=== PATIENT | male | born 1965 | race Caucasian/White ===

== ENCOUNTER 2020-06-09 17:30 | Emergency (ER) | payer MEDICAID ==
[~2020-06-09] VITALS: Ht 170.2 cm; Wt 83.9 kg
--- NOTE | 2020-06-09 17:58 | NUR ---
LOWER BACK PAIN, DENIES ANY INJURY. PATIENT A/OX4, BREATHING EVEN AND UNLABORED, NO SOB NOTED, NEEDS ATTENDED, KEPT COMFORTABLE.
[2020-06-09] MEDS ORDERED: KETOROLAC TROMETHAMINE INJ 60 MG/2 ML VIAL IM ONE (18:42)
[2020-06-09] MEDS ORDERED: DEXAMETHASONE SOD PHOSPHATE 4 MG/ML VIAL ONE (18:42)
[2020-06-09] MEDS ORDERED: CARISOPRODOL 350 MG TABLET ONE (18:42)
[2020-06-09] MEDS: KETOROLAC TROMETHAMINE INJ 60 MG/2 ML VIAL IM ONE (18:55)
[2020-06-09] MEDS: CARISOPRODOL 350 MG TABLET PO ONE (18:55)
[2020-06-09] MEDS: DEXAMETHASONE SOD PHOSPHATE 4 MG/ML VIAL IM ONE (18:56)
--- NOTE | 2020-06-09 19:15 | NUR ---
ENDORSED TO KEYONNA FERNÁNDEZ.
[2020-06-09 19:54] VITALS: BP 124/79
--- NOTE | 2020-06-09 19:54 | NUR ---
Patient discharged to home in stable condition. Written and verbal after care instructions given. Patient verbalizes understanding of instruction and RX. PT ambulated with staedy gait, vss.
== END 2020-06-09 19:54 | disposition home or self-care (01) ==
LOC: ER 17:35
DX: M54.41 Lumbago with sciatica, right side (principal); M54.42 Lumbago with sciatica, left side; Z88.0 Allergy status to penicillin; Z88.1 Allergy status to other antibiotic agents; Z85.3 Personal history of malignant neoplasm of breast
CPT/HCPCS: 96372 ×2; 99284; J1100; J1885

== ENCOUNTER 2020-06-17 02:23 | Emergency (ER) | payer MEDICAID ==
[~2020-06-17] VITALS: Ht 170.2 cm; Wt 84.8 kg
--- NOTE | 2020-06-17 02:35 | NUR ---
PT BIBA FROM [facility] C/O NON RADIATING CHEST PAIN/ ABD PAIN. PT STATES "MAYBE ITS A MUSCLE TEAR.". PT AAOX4, VSS, RESPIRATIONS EVEN AND UNLABORED ON RA W/ NAD NOTED. PT CONNECTED TO THE SIGN DESIGNER AND POX.
--- NOTE | 2020-06-17 02:40 | NUR ---
BLOOD COLLECTED AND SENT TO LAB
[2020-06-17] MEDS ORDERED: HYDROMORPHONE 1 MG/1 ML DISP.SYRIN ONE (02:56)
[2020-06-17] MEDS ORDERED: ONDANSETRON HCL/PF 4 MG/2 ML VIAL ONE (02:56)
[2020-06-17] MEDS ORDERED: IV NS 0.9% 1,000 ML BAG IV ONE (03:00)
[2020-06-17] MEDS ORDERED: HYDROMORPHONE 1 MG/1 ML DISP.SYRIN IV ONE (03:00)
[2020-06-17] MEDS ORDERED: ONDANSETRON HCL/PF - ER 4 MG/2 ML VIAL IV ONE (03:00)
[2020-06-17] MEDS ORDERED: IOHEXOL-350 100 ML VIAL IV ONE (03:11)
[2020-06-17] MEDS ORDERED: IV NS 0.9% 250 ML IV ONE (03:11)
[2020-06-17 03:15] LABS: BASOPHILS # (AUTO) 0.1 /CMM (0.0-0.2); BASOPHILS % (AUTO) 0.6 % (0.0-2.0); EOSINOPHILS % (AUTO) 2.9 % (0.0-6.0); HEMATOCRIT 46 % (39-51); HEMOGLOBIN 15.4 g/dL (13.5-17.5); LYMPHOCYTES # (AUTO) 2.7 /CMM (0.8-4.8); LYMPHOCYTES % (AUTO) 26.4 % (20.0-44.0); MEAN CORPUSCULAR HGB CONC 33 g/dl (31.0-36.0); MEAN CORPUSCULAR VOLUME 94 fL (80-96); MONOCYTES % (AUTO) 9.6 % (2.0-12.0); NEUTROPHILS # (AUTO) 6.1 /CMM (1.8-8.9); NEUTROPHILS % (AUTO) 60.5 % (43.0-81.0); PLATELET COUNT (AUTO) 233 /CMM (150-450); RED BLOOD CELL COUNT(AUTO) 4.93 MIL/uL (4.5-6.0); WHITE BLOOD COUNT (AUTO) 10.1 K/uL (4.3-11.0)
[2020-06-17 03:21] LABS: CALCIUM, SERUM 9.3 mg/dL (8.5-10.1); CARBON DIOXIDE 28 mmol/L (21-32); CHLORIDE 105 mmol/L (98-107); CREATININE 1.7 mg/dL (0.6-1.3); GLUCOSE 121 mg/dL (74-106); POTASSIUM 4.5 mmol/L (3.5-5.1); SODIUM SERUM 142 mmol/L (136-145); UREA NITROGEN, BLOOD 26 mg/dL (7-18)
[2020-06-17 03:33] LABS: ALANINE AMINOTRANSFERASE 75 U/L (12-78); ALBUMIN 3.5 g/dL (3.4-5.0); ALKALINE PHOSPHATASE 180 U/L (46-116); ASPARTATE AMINOTRANSFERASE 39 U/L (15-37); BILIRUBIN,DIRECT 0.1 mg/dL (0.0-0.2); BILIRUBIN,TOTAL 0.3 mg/dL (0.2-1.0); TOTAL PROTEIN, SERUM 6.9 g/dL (6.4-8.2)
[2020-06-17 03:34] LABS: B-TYPE NATRIURETIC PEPTIDE 7 PG/ML (0-125)
--- NOTE | 2020-06-17 04:09 | NUR ---
PT TAKEN TO RADIOLOGY FOR CT
[2020-06-17] MEDS ORDERED: HYDROCODONE/APAP 10/325MG TABLET ONE (05:52)
[2020-06-17] MEDS ORDERED: HYDROCODONE/APAP 10/325MG TABLET PO ONE (06:00)
--- NOTE | 2020-06-17 06:46 | NUR ---
Patient discharged to home in stable condition. Written and verbal after care instructions given. Patient verbalizes understanding of instruction.IV removed. Catheter intact and site benign. Pressure and 4x4 applied to site. No bleeding noted.pt. ambulatory with a steady gait
[2020-06-17 06:47] VITALS: BP 148/62
== END 2020-06-17 06:48 | disposition home or self-care (01) ==
LOC: ER 02:23
DX: R07.89 Other chest pain (principal); R10.13 Epigastric pain; E78.00 Pure hypercholesterolemia, unspecified; I10 Essential (primary) hypertension; G89.29 Other chronic pain; M54.9 Dorsalgia, unspecified; Z59.0 Homelessness; Z88.0 Allergy status to penicillin; Z88.1 Allergy status to other antibiotic agents
CPT/HCPCS: 36415; 71045; 71250; 74176; 76705; 80048; 80076; 83690; 83880; 84484 ×2; 85025; 85730; 93005; 96361; 96374; 96375; 99285; J1170; J2405 ×2; J7050; Q9967

== ENCOUNTER 2020-07-03 00:11 | Inpatient (IN) | payer MEDICAID ==
[~2020-07-03] VITALS: Ht 152.4 cm; Wt 82.1 kg
[2020-07-03] MEDS ORDERED: ONDANSETRON 4 MG TAB.RAPDIS SL ONE (00:30)
[2020-07-03] MEDS ORDERED: HYDROMORPHONE INJ 2 MG/ML DISP.SYRIN IM ONE (00:30)
--- NOTE | 2020-07-03 01:00 | NUR ---
BIBEMS C/O WORSENING R SIDED ABCK PAIN RADIATING TO RLE X3 1/2 DAYS TO ER BED 3
[2020-07-03] MEDS ORDERED: ONDANSETRON HCL/PF 4 MG/2 ML VIAL ONE (01:21)
[2020-07-03] MEDS ORDERED: HYDROMORPHONE INJ 2 MG/ML DISP.SYRIN ONE (01:21)
--- NOTE | 2020-07-03 01:47 | NUR ---
covid swab collected and sent to lab
[2020-07-03] MEDS ORDERED: ACETAMINOPHEN 325 MG TABLET PO PRN (03:00)
[2020-07-03] MEDS ORDERED: MAG HYDROX/AL HYDROX/SIMETH 30 ML UDC PO PRN (03:00)
[2020-07-03] MEDS ORDERED: MAGNESIUM HYDROXIDE 30 ML UDC PO PRN (03:00)
[2020-07-03] MEDS ORDERED: ONDANSETRON HCL/PF 4 MG/2 ML VIAL IVP PRN (03:00)
[2020-07-03] MEDS ORDERED: ZOLPIDEM TARTRATE 5 MG TABLET PO PRN (03:00)
[2020-07-03] MEDS ORDERED: Z GUARD REMEDY 2 OZ OINT TP PRN (03:00)
[2020-07-03] MEDS ORDERED: LISI1TAB32 PO (03:11)
[2020-07-03] MEDS ORDERED: CETI-90 PO (03:11)
[2020-07-03] MEDS ORDERED: GABA600T12 PO (03:11)
[2020-07-03] MEDS ORDERED: SIMV-46 PO (03:11)
[2020-07-03] MEDS ORDERED: PANT40TA49 PO (03:11)
[2020-07-03] MEDS ORDERED: MELO-107 PO (03:11)
[2020-07-03] MEDS ORDERED: ATOR20TA PO (03:11)
[2020-07-03] MEDS ORDERED: DULO60CA45 PO (03:11)
[2020-07-03] MEDS ORDERED: FENO54TA PO (03:11)
[2020-07-03] MEDS ORDERED: OMEP20CA15 PO (03:11)
[2020-07-03 03:45] VITALS: BP 139/95
--- NOTE | 2020-07-03 03:47 | NUR ---
PT TRANSFERED TO [facility]
--- NOTE | 2020-07-03 04:38 | NUR ---
MS/TELE/RN RECEIVED PATIENT FROM [facility] BY WHEELCHAIR. PATIENT WAS AWAKE, ALERT, ORIENTED, COMFORTABLE, NO C/O PAIN, NO DISTRESS NOTED. ADMISSION DONE PER PROTOCOL, PHOTO TAKEN ON LEFT GREAT TOE WOUND. PLAN OF CARE DISCUSSED, VERBALIZED UNDERSTANDING AND AGREEMENT, TAUGHT THE USED OF CALL LIGHT, VERBALIZED UNDERSTANDING, PLACED IT AT BEDSIDE WITHIN REACH. PATIENT IS HIGH FALL RISK SECONDARY TO MULTIPLE HISTORY OF FALLS, ENCOURAGED TO CALL FOR ASSISTANCE TO PREVENT FALL, FALL PRECAUTIONS PER PROTOCOL IMPLEMENTED. WILL MONITOR.
[2020-07-03 08:00] VITALS: BP 105/77
--- NOTE | 2020-07-03 08:00 | NUR ---
RN NOTES RECEIVED PATIENT IN THE BED A/O X3, NO ACUTE RESPIRATORY DISTRESS, PATIENT WAS COMPLAINING OF PAIN BILATERAL LOWER EXTREMITIES PAIN 8/10 PER PATIENT REQUEST. IV ACCESS ON RIGHT AC AREA INTACT. PATIENT USING BATHROOM, AMBULATORY NO FALL RISK. CALL LIGHT WITHIN TO REACH, SAFETY PRECAUTION MAINTAINED ALL THE TIME.
[2020-07-03] MEDS ORDERED: DOCU-141 PO (08:08)
[2020-07-03] MEDS ORDERED: GABA800T11 PO (08:08)
[2020-07-03] MEDS ORDERED: CHLO50TA PO (08:08)
[2020-07-03] MEDS ORDERED: FLUT16SP (08:08)
[2020-07-03] MEDS ORDERED: HYOS0.1273 PO (08:08)
[2020-07-03] MEDS ORDERED: ACET-2605 PO (08:08)
[2020-07-03] MEDS ORDERED: CHOL100040 PO (08:08)
[2020-07-03] MEDS ORDERED: PROP40TA7 PO (08:08)
[2020-07-03] MEDS ORDERED: ARIP15TA3 PO (08:08)
[2020-07-03] MEDS: HYDROCODONE/APAP 5/325MG TABLET PO PRN (11:28)
--- NOTE | 2020-07-03 11:28 | NUR ---
rn notes administered narco 5/325 mg po prn for bilateral lower legs, pain 03/21per patient request, v/s taken bp 107/77, p-96, r-18.
[2020-07-03] MEDS: HYDROMORPHONE 1 MG/1 ML DISP.SYRIN IV PRN (14:49)
--- NOTE | 2020-07-03 14:49 | NUR ---
RN NOTES ADMINISTERED DILAUDID 1 MG /ML IV PUSH FOR GENERALIZED PAIN PER PATIENT REQUEST03/21, V/S TAKEN BP112/68,P-90, R-18.
[2020-07-03 16:00] VITALS: BP 132/87
--- NOTE | 2020-07-03 16:19 | NUR ---
RN NOTES PATIENT SEEN HOSPITALIST, CONTINUED MEDICATION PRESCRIBED, CONTINUED HOSPITALIZATION.
[2020-07-03] MEDS ORDERED: FLUTICASONE PROPIONATE 16 GM BOTTLE NS PRN (17:00)
[2020-07-03] MEDS ORDERED: HYOSCYAMINE SULFATE 0.125 MG TAB.SUBL SL PRN (17:00)
[2020-07-03] MEDS ORDERED: DOCUSATE SODIUM 100 MG CAPSULE PO PRN (17:00)
[2020-07-03] MEDS: GABAPENTIN 300 MG CAPSULE PO SCH ×2 (17:13→17:37)
[2020-07-03] MEDS: GABAPENTIN 400 MG CAPSULE PO SCH (17:39)
[2020-07-03] MEDS: PROPRANOLOL HCL 40 MG TABLET PO SCH (17:54)
[2020-07-03] MEDS ORDERED: SIMVASTATIN 20 MG TABLET PO SCH (18:00)
--- NOTE | 2020-07-03 18:17 | NUR ---
RN NOTES PATIENT STABLE, V/S WNL, ADMINISTERED SCHEDULED MEDICATION, PATIENT AMBULATORY SELF CARE. TOLERATED DINNER WELL. ENDORSED ONCOMING NURSE FOLLOW PLAN OF CARE.
--- NOTE | 2020-07-03 19:30 | NUR ---
MS3 RN NOTES: OPENING RECEIVED PATIENT IN THE BED A/O X3, NO ACUTE RESPIRATORY DISTRESS. BREATHING EVEN AND UNLABORED. NO SOB. NO PAIN AT THIS TIME. IV ACCESS ON RIGHT AC AREA INTACT. PATIENT USING BATHROOM, AMBULATORY NO FALL RISK. CALL LIGHT WITHIN TO REACH, SAFETY PRECAUTION MAINTAINED ALL THE TIME.
[2020-07-03 20:30] VITALS: BP 105/62
[2020-07-03] MEDS ORDERED: ATORVASTATIN 10 MG TABLET PO SCH (22:00)
[2020-07-04 03:33] VITALS: BP 119/80
[2020-07-04] MEDS: HYDROMORPHONE 1 MG/1 ML DISP.SYRIN IV PRN (03:40)
--- NOTE | 2020-07-04 03:46 | NUR ---
GPS RN NOTES: C/O OF BACK PAIN LA C/O OF LOWER BACK PAIN 04/21. VITALS TAKEN WNL. PT REQUESTED PAIN MEDICATION. OFFERED DILAUDID PRN ORDERED. PT AGREED AND TOLERATED MEDICATION WELL. CONTINUE TO MONITOR
--- NOTE | 2020-07-04 05:40 | NUR ---
MS/RN CLOSING NOTE PATIENT REMAINS IN STABLE CONDITION. A/0 X4 ABLE TO VERBALIZE NEEDS. PATIENT ON ROOM AIR, TOLERATING WELL. BREATHING EVEN, NON LABORED, NO SOB NOTED. NO PAIN AT THIS TIME. IV SITE INTACT. ALL NEEDS ATTENDED THROUGHOUT THE SHIFT. CONTINUE TO MONITOR.
[2020-07-04 05:46] LABS: BASOPHILS # (AUTO) 0.1 /CMM (0.0-0.2); BASOPHILS % (AUTO) 1.2 % (0.0-2.0); EOSINOPHILS % (AUTO) 5.1 % (0.0-6.0); HEMATOCRIT 44 % (39-51); HEMOGLOBIN 14.8 g/dL (13.5-17.5); LYMPHOCYTES # (AUTO) 2.3 /CMM (0.8-4.8); LYMPHOCYTES % (AUTO) 28.7 % (20.0-44.0); MEAN CORPUSCULAR HGB CONC 34 g/dl (31.0-36.0); MEAN CORPUSCULAR VOLUME 93 fL (80-96); MONOCYTES % (AUTO) 12.4 % (2.0-12.0); NEUTROPHILS # (AUTO) 4.3 /CMM (1.8-8.9); NEUTROPHILS % (AUTO) 52.6 % (43.0-81.0); PLATELET COUNT (AUTO) 224 /CMM (150-450); WHITE BLOOD COUNT (AUTO) 8.1 K/uL (4.3-11.0)
[2020-07-04 06:08] LABS: CALCIUM, SERUM 9.3 mg/dL (8.5-10.1); CREATININE 1.7 mg/dL (0.6-1.3); MAGNESIUM 1.9 mg/dL (1.8-2.4); PHOSPHORUS 4.3 mg/dL (2.5-4.9); POTASSIUM 4.4 mmol/L (3.5-5.1)
--- NOTE | 2020-07-04 07:27 | NUR ---
MS RN OPENING NOTES BEDSIDE ENDORSEMENT DONE. PATIENT IS IN BED, AWAKE AND VERBALLY RESPONSIVE. A/O X4, ABLE TO MAKE NEEDS KNOWN. BREATHING EVEN AND UNLABORED, TOLERATING ROOM AIR, NOT IN ACUTE DISTRESS. IV LINE ON RAC #20 INTACT AND PATENT. PATIENT IS AMB W/ ASSIST AND IS CONTINENT PER [facility]ODGE ATTENDANT RN REPORT. SAFETY PRECAUTIONS IN PLACE: BED LOCKED AND ON LOWEST POSITION, SR UP X2, CALL LIGHT W/IN REACH. WILL CONTINUE TO MONITOR.
[2020-07-04 08:00] VITALS: BP 118/87
[2020-07-04] MEDS: PROPRANOLOL HCL 40 MG TABLET PO SCH ×3 (08:52→16:36)
[2020-07-04] MEDS: GABAPENTIN 300 MG CAPSULE PO SCH ×3 (08:53→16:36)
[2020-07-04] MEDS: GABAPENTIN 400 MG CAPSULE PO SCH ×3 (08:53→16:36)
[2020-07-04] MEDS ORDERED: ARIPIPRAZOLE 5 MG TABLET PO SCH (09:00)
[2020-07-04] MEDS ORDERED: cetrizine 10 MG TABLET PO SCH (09:00)
[2020-07-04] MEDS ORDERED: OMEPRAZOLE 20 MG CAPSULE.DR PO SCH (09:00)
[2020-07-04] MEDS ORDERED: HYDROCHLOROTHIAZIDE 25 MG TABLET PO SCH (09:00)
[2020-07-04] MEDS ORDERED: PANTOPRAZOLE 40 MG TABLET.DR PO SCH (09:00)
[2020-07-04] MEDS ORDERED: Fenofibrate 48 MG TABLET PO SCH (09:00)
[2020-07-04] MEDS ORDERED: DULOXETINE HCL 30 MG CAPSULE.DR PO SCH (09:00)
[2020-07-04] MEDS ORDERED: LISINOPRIL (10MG) 10 MG TABLET PO SCH (09:00)
[2020-07-04] MEDS ORDERED: MELOXICAM 7.5 MG TABLET PO SCH (09:00)
[2020-07-04] MEDS ORDERED: CHOLECALCIFEROL 1,000 UNIT TABLET (VIT D3) PO SCH (09:00)
[2020-07-04] MEDS: HYDROCODONE/APAP 5/325MG TABLET PO PRN ×2 (09:05→13:25)
--- NOTE | 2020-07-04 09:10 | NUR ---
WOUND CARE CONSULT: PT PRESENTS WITH LEFT GREAT TOE NAIL ISSUE, PRESENT ON ADMISSION. RECOMMEND DPM CONSULT. DR GARCIA NOTIFIED. WILL SEE PRN. CURRENT VAZQUEZ SCORE IS 21.
--- NOTE | 2020-07-04 09:13 | NUR ---
RN NOTES AM MEDS ADMINISTERED. PATIENT IS A/O X4 AND WANTS TO OPEN THE MEDICATIONS HIMSELF. WILL CONTINUE TO MONITOR.
--- NOTE | 2020-07-04 09:15 | NUR ---
RN NOTES PATIENT REFUSED TO WEAR BLE SCD PUMPS WHEN IN BED. EXPLAINED IMPORTANCE TO PATIENT BUT INSISTED ON NOT WEARING THEM.
[2020-07-04] MEDS ORDERED: IV NS 0.9% 1,000 ML IV PRN (11:00)
[2020-07-04] MEDS ORDERED: oxyCODONE/APAP (5/325 MG) 1 UDTAB TABLET PO PRN (15:00)
[2020-07-04] MEDS ORDERED: KETOROLAC TROMETHAMINE INJ 30 MG/ML VIAL IV ONE (15:00)
[2020-07-04] MEDS ORDERED: OXYC-128 PO (15:46)
[2020-07-04] MEDS ORDERED: GABA600T12 PO (15:46)
[2020-07-04 16:00] VITALS: BP 109/75
[2020-07-04 16:36] VITALS: BP 109/75
--- NOTE | 2020-07-04 16:42 | NUR ---
Instructional Resource Teacher consult requested by CERTIFIED CYTOTECHNOLOGIST Esthela Tucker as patient is homeless. Patient is a 54 year-old male. Patient reports being homeless for approximately 10 months. Patient is alert and oriented x4. Patient is independent in ADL's and IASL's. Patient reports that he is currently receiving $221 in [employer] and $201 in [employer] [place]. Patient reports that he has been staying at [facility] [address] [address] . Patient currently denies SI and HI. Patient denies auditory and visual hallucinations. 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 SW assessed patient's community needs and provided homeless resources to this patient. Patient refused these resources however patient was agreeable for this SW to follow-up with [facility] and [facility] to ensure patient can return. Plan: SW to follow-up with [facility] status.
--- NOTE | 2020-07-04 16:57 | NUR ---
SW contacted [facility] option 7 regarding patient's [facility] status. This SW spoke with Alex at [facility]. Per Alex, patient can return to [facility] as they have a 48 hour window before exiting patient out of the system. SW will remain available for all needs regarding this patient.
[2020-07-04] MEDS ORDERED: INFLUENZA VACCINE 2020-21 0.5 ML DISP.SYRIN IM ONE (17:00)
--- NOTE | 2020-07-04 18:03 | NUR ---
RN NOTES FLU VACCINE GIVEN TO PATIENT ON R DELTOID; NO IMMEDIATE ADVERSE REACTION.
[2020-07-04 18:21] LABS: CREATININE, URINE 156.4 MG/DL (30.0-125.0); URINE TOTAL PROTEIN 18.9 mg/dL (0-11.9)
[2020-07-04 18:22] LABS: BILIRUBIN,URINE NEGATIVE (NEGATIVE); BLOOD, URINE NEGATIVE Ery/uL (NEGATIVE); COLOR,URINE YELLOW (YELLOW); LEUKOCYTE ESTERASE ,URINE NEGATIVE (NEGATIVE); NITRITE, URINE NEGATIVE (NEGATIVE); PH,URINE 5.5 (5.0-8.0); PROTEIN,URINE NEGATIVE (NEGATIVE); UGLUCOSE NEGATIVE (NEGATIVE)
[2020-07-04 18:30] LABS: BACTERIA,URINE None seen /HPF (None Seen); RBC,URINE 0-2 /HPF (0-2); SQUAMOUS EPITHELIAL CELL,UR 0-2 /HPF (None Seen); WBC,URINE 0-2 /HPF (0-3)
[2020-07-04 18:44] LABS: EOSINOPHIL,URINE Rare
--- NOTE | 2020-07-04 18:58 | NUR ---
PLASTERER SPOT NOTES PATIENT WAS SEEN BY DR. MIN AND DR. DE PAZ, PAIN SPECIALIST, W/ ORDER FOR DISCHARGE TODAY. PATIENT IS AWAKE AND VERBALLY RESPONSIVE, A/O X4, ABLE TO MAKE NEEDS KNOWN. DISCHARGE INSTRUCTIONS AND EDUCATION PROVIDED TO PATIENT; EXPLAINED INSTRUCTIONS AND PROVIDED TRIPLICATE TO PATIENT. VERBALIZED UNDERSTANDING OF INSTRUCTION AND EDUCATION. PER PATIENT, HE IS GOING BACK TO [facility]. DISCHARGE FORM SIGNED BY PATIENT. BELONGINGS ACCOUNTED FOR, AND FORM SIGNED. NAME ARMBAND AND IV LINE REMOVED. FLU VACCINE GIVEN TO PATIENT. PHOTO TAKEN OF SKIN ISSUE. PATIENT WAS ACCOMPANIED BY [facility] TO THE LOBBY AND PICKED UP BY [facility]. CHARGE NURSE AND MD AWARE OF DISCHARGE.
== END 2020-07-04 19:05 | disposition home or self-care (01) | DRG 347 ==
LOC: ER 00:13 → MED 03:29
PROVIDERS: ADMIT Nurse Practitioner Acute Care; ATTEND Nurse Practitioner Acute Care
DX: M51.17 Intervertebral disc disorders with radiculopathy, lumbosacral region (principal); E78.5 Hyperlipidemia, unspecified; K75.81 Nonalcoholic steatohepatitis (NASH); G89.4 Chronic pain syndrome; L60.0 Ingrowing nail; M79.7 Fibromyalgia; N17.0 Acute kidney failure with tubular necrosis; Z59.0 Homelessness; Z87.891 Personal history of nicotine dependence; Z98.1 Arthrodesis status; Z79.1 Long term (current) use of non-steroidal anti-inflammatories (NSAID); I12.9 Hypertensive chronic kidney disease with stage 1 through stage 4 chronic kidney disease, or unspecified chronic kidney disease; N18.9 Chronic kidney disease, unspecified; Z88.0 Allergy status to penicillin; M79.675 Pain in left toe(s); M54.5 Low back pain; K82.9 Disease of gallbladder, unspecified
CPT/HCPCS: 36415; 80048-TC; 81001; 82570-TC; 83735-TC; 84100-TC; 84155-TC; 84300-TC; 85025-TC; 87081-TC; C9803; G0378; J1170; J1885; J2405; Q2036

== ENCOUNTER 2020-07-25 02:33 | Emergency (ER) | payer MEDICAID ==
[~2020-07-25] VITALS: Ht 152.4 cm; Wt 77.1 kg
[2020-07-25 02:33] VITALS: BP 143/78
[~2020-07-25 02:33] MED LIST: ACET-2605 PO; ARIP15TA3 PO; ATOR20TA PO; CETI-90 PO; CHLO50TA PO; CHOL100040 PO; DOCU-141 PO; DULO60CA45 PO; FENO54TA PO; FLUT16SP; GABA600T12 PO; HYOS0.1273 PO; LISI1TAB32 PO; OMEP20CA15 PO; OXYC-128 PO; PANT40TA49 PO; PROP40TA7 PO
[2020-07-25] MEDS ORDERED: HYDROCODONE/APAP 5/325MG TABLET PO ONE (03:00)
[2020-07-25] MEDS ORDERED: HYDROCODONE/APAP 5/325MG TABLET ONE (03:00)
[2020-07-25] MEDS ORDERED: KETOROLAC TROMETHAMINE INJ 60 MG/2 ML VIAL IM ONE ×2 (03:00)
== END 2020-07-25 03:17 | disposition home or self-care (01) ==
LOC: ER 02:34
DX: R07.89 Other chest pain (principal); I10 Essential (primary) hypertension; E78.00 Pure hypercholesterolemia, unspecified; G89.29 Other chronic pain; M54.9 Dorsalgia, unspecified; Z98.890 Other specified postprocedural states; Z88.0 Allergy status to penicillin; Z88.1 Allergy status to other antibiotic agents; Z79.899 Other long term (current) drug therapy
CPT/HCPCS: 96372; 99283; J1885

== ENCOUNTER 2020-10-01 19:13 | Emergency (ER) | payer MEDICAID ==
[~2020-10-01] VITALS: Ht 152.4 cm; Wt 72.6 kg
--- NOTE | 2020-10-01 19:24 | NUR ---
DR WILKERSON AT BED SIDE
[2020-10-01] MEDS ORDERED: KETOROLAC TROMETHAMINE INJ 60 MG/2 ML VIAL IM ONE (19:33)
[2020-10-01] MEDS ORDERED: HYDROCODONE/APAP 5/325MG TABLET ONE (19:33)
[2020-10-01 19:42] LABS: BASOPHILS # (AUTO) 0.1 /CMM (0.0-0.2); BASOPHILS % (AUTO) 1.3 % (0.0-2.0); EOSINOPHILS % (AUTO) 1.8 % (0.0-6.0); HEMATOCRIT 45 % (39-51); HEMOGLOBIN 15.3 g/dL (13.5-17.5); LYMPHOCYTES # (AUTO) 1.9 /CMM (0.8-4.8); LYMPHOCYTES % (AUTO) 18.9 % (20.0-44.0); MEAN CORPUSCULAR HGB CONC 34 g/dl (31.0-36.0); MEAN CORPUSCULAR VOLUME 95 fL (80-96); MONOCYTES # (AUTO) 0.8 /CMM (0.1-1.30); MONOCYTES % (AUTO) 8.1 % (2.0-12.0); NEUTROPHILS # (AUTO) 7.1 /CMM (1.8-8.9); NEUTROPHILS % (AUTO) 69.9 % (43.0-81.0); PLATELET COUNT (AUTO) 218 /CMM (150-450); RED BLOOD CELL COUNT(AUTO) 4.73 MIL/uL (4.5-6.0); WHITE BLOOD COUNT (AUTO) 10.1 K/uL (4.3-11.0)
[2020-10-01] MEDS: KETOROLAC TROMETHAMINE INJ 60 MG/2 ML VIAL IM ONE (19:44)
[2020-10-01] MEDS: HYDROCODONE/APAP 5/325MG TABLET PO ONE (19:45)
--- NOTE | 2020-10-01 19:46 | NUR ---
GUILHERME [facility] for C/O "he was sitting at his computer and then passed out". he stated he jerked all over his body and that jerking sensation awoke him from his syncope. pt reported chronic back pain. pt was assisted transferring to bed 3 ER and was placed on amonitor,
[2020-10-01 20:14] LABS: ALANINE AMINOTRANSFERASE 84 U/L (12-78); ALBUMIN 3.4 g/dL (3.4-5.0); ALKALINE PHOSPHATASE 158 U/L (46-116); ASPARTATE AMINOTRANSFERASE 59 U/L (15-37); BILIRUBIN,DIRECT 0.1 mg/dL (0.0-0.2); BILIRUBIN,TOTAL 0.3 mg/dL (0.2-1.0); CALCIUM, SERUM 9.3 mg/dL (8.5-10.1); CARBON DIOXIDE 31 mmol/L (21-32); CHLORIDE 103 mmol/L (98-107); CREATININE 1.6 mg/dL (0.6-1.3); GLUCOSE 101 mg/dL (74-106); POTASSIUM 4.6 mmol/L (3.5-5.1); SODIUM SERUM 141 mmol/L (136-145); TOTAL PROTEIN, SERUM 6.9 g/dL (6.4-8.2); UREA NITROGEN, BLOOD 24 mg/dL (7-18)
[2020-10-01] MEDS ORDERED: HYDR-3980 PO (20:21)
--- NOTE | 2020-10-01 20:34 | NUR ---
Pt is medically stable for D/C. IV removed. Catheter intact and site benign. Pressure and 4x4 applied to site. No bleeding noted.Patient discharged to home in stable condition. Rx and Written and verbal after care instructions given. Patient verbalizes understanding of instruction.
[2020-10-01 20:35] VITALS: BP 152/88
== END 2020-10-01 20:35 | disposition home or self-care (01) ==
LOC: ER 19:15
DX: G89.4 Chronic pain syndrome (principal); R55 Syncope and collapse; I10 Essential (primary) hypertension; E78.00 Pure hypercholesterolemia, unspecified; Z98.890 Other specified postprocedural states; Z88.0 Allergy status to penicillin; Z88.1 Allergy status to other antibiotic agents; Z59.0 Homelessness; Z79.899 Other long term (current) drug therapy
CPT/HCPCS: 36415; 70450; 71045; 80048; 80076; 84484; 85025; 93005; 96372; 99285; J1885

== ENCOUNTER 2020-10-04 16:23 | Emergency (ER) | payer MEDICAID ==
[~2020-10-04] VITALS: Ht 152.4 cm; Wt 74.8 kg
[~2020-10-04 16:23] MED LIST changes: +HYDR-3980 PO
[2020-10-04 16:41] VITALS: BP 141/81
[2020-10-04] MEDS ORDERED: BACI/NEOM/POLY B OINT PKT 1 UDPKT PACKET TP ONE (17:00)
[2020-10-04] MEDS ORDERED: BACI/NEOM/POLY B OINT PKT 1 UDPKT PACKET ONE (17:04)
[2020-10-04] MEDS ORDERED: HYDR-4275 PO (17:48)
[2020-10-04] MEDS ORDERED: HYDR-4303 PO (17:57)
[2020-10-04] MEDS ORDERED: IBUP-1955 PO (17:58)
--- NOTE | 2020-10-04 18:00 | NUR ---
WOUND CLEANING AND DRESSING DONE BY POLISHER HAND.
--- NOTE | 2020-10-04 18:20 | NUR ---
Patient discharged to home in stable condition. Written and verbal after care instructions given. Patient verbalizes understanding of instruction.
== END 2020-10-04 18:21 | disposition home or self-care (01) ==
LOC: ER 17:02
DX: S80.212A Abrasion, left knee, initial encounter (principal); S80.211A Abrasion, right knee, initial encounter; I10 Essential (primary) hypertension; E78.5 Hyperlipidemia, unspecified; G89.29 Other chronic pain; M54.5 Low back pain; Z98.890 Other specified postprocedural states; Z88.0 Allergy status to penicillin; Z88.1 Allergy status to other antibiotic agents; Z79.899 Other long term (current) drug therapy; W19.XXXA Unspecified fall, initial encounter; Y93.89 Activity, other specified; Y92.89 Other specified places as the place of occurrence of the external cause; Y99.8 Other external cause status
CPT/HCPCS: 73564-TC